=== PATIENT | female | born 1930 | race Caucasian/White ===

== ENCOUNTER 2017-09-02 23:40 | Inpatient (IN) | payer OTHER ==
[~2017-09-02] VITALS: Ht 160 cm; Wt 68.8 kg
--- NOTE | ~2017-09-02 | HC ---
[facility] [place] [address] CONSULTATION Name: JESUS MANUEL HITCHCOCK Room #: 355-P ADM IN M.R.#: [id number] Admission: 09/03/17 Attend Phys: Sherrie Merchant Discharge: Date of : 31 Report #: [id number] THIS REPORT FOR: //name// CC: Rosa Merchant DATE OF SERVICE: 09/03/2017 REASON FOR CONSULTATION: Elevated troponin. HISTORY OF PRESENT ILLNESS: The patient is an 86-year-old female with a history of coronary artery disease and ischemic cardiomyopathy, most recent echo was in 03/2015 showing EF of 40-45% with evidence of anterior and inferior AK. She also has a history of diabetes; hypertension; hyperlipidemia; ischemic bowel, status post colostomy; peripheral vascular disease, status post prior stents, as well as carotid endarterectomy and COPD, on chronic oxygen. She has seen Dr. Correia here in the past. She presented with worsening shortness of breath. In the ER, she received Lasix and nebs and steroids. Her shortness of breath has improved. She was noted to have a troponin of 0.1. She denies any chest pain or chest tightness. She has been noticing increased exertional dyspnea. She denies PND or orthopnea. She denies presyncope or syncope. PAST MEDICAL HISTORY: As above. SOCIAL HISTORY: Quit smoking. FAMILY HISTORY: Noncontributory. ALLERGIES: None. MEDICATIONS: Include glimepiride, nebs, OxyContin, metformin, atorvastatin, prednisone, oxycodone, Imdur, Plavix, aspirin, carvedilol 6.25, not on an WESLEY due to chronic renal insufficiency, Protonix, gabapentin, aspirin. PHYSICAL EXAMINATION: VITAL SIGNS: Temperature is 35.9, pulse 62, respirations 12, blood pressure 118/59, sats 100% on oxygen. GENERAL: She is in no acute distress. HEENT: Oropharynx clear. NECK: Supple, no thyromegaly. HEART: Regular rate and rhythm. She does not have elevated jugular venous pressures. LUNGS: Demonstrate some mild coarse crackles, mild expiratory wheezes. ABDOMEN: Soft, nontender, nondistended with no hepatosplenomegaly. EXTREMITIES: No clubbing, cyanosis, or edema. Pulses are 1+ on the dorsalis pedis area. [address] [address] CONSULTATION Name: JESUS MANUEL HITCHCOCK Room #: 355-P ADM IN M.R.#: [id number] Admission: 09/03/17 Attend Phys: Sherrie Merchant Discharge: Date of : 31 Report #: [id number] NEUROLOGIC: Cranial nerves 2-12 are intact. LABORATORY DATA: Her 12-lead EKG shows sinus rhythm with no ischemic changes. Her telemetry shows no significant arrhythmias. LABORATORY DATA: White count 5.5, hemoglobin 12.3, platelets 180. Blood gas 7.2, pCO2 66, pO2 on admission. Coags: D-dimer is elevated at 1.8. V/Q scan was low probability. Sodium is 139, potassium 3.5, BUN 45, creatinine 2.0, glucose 166. Troponin is 0.11. No chest x-ray was performed. ASSESSMENT: 1. Elevated troponin. 2. Ischemic cardiomyopathy. 3. Coronary artery disease. 4. Acute respiratory failure with hypercapnia. 5. Chronic obstructive pulmonary disease. 6. Peripheral vascular disease. PLAN: In summary, patient has history of ischemic cardiomyopathy, EF of 40-45%. She does not have any anginal symptoms and no ischemia on her EKG. She has slightly elevated troponin, which could be due to some CHF versus COPD exacerbation. She had a proBNP that is elevated at 3000. I have recommended that she undergo an echocardiogram. We will continue with beta jose alejandro therapy and aspirin therapy and continue with diuretics. No WESLEY or ARB due to chronic renal insufficiency. I do not think stress testing is warranted at this time. We will continue to follow. <ELECTRONICALLY SIGNED> By: Yemi Villalobos MD 09/04/17 1327 [id number] Yemi Villalobos MD /nt
--- NOTE | ~2017-09-02 | 2DMMODE ---
[facility] [address] [place] [address] 2 D/M-MODE ECHOCARDIOGRAM Name: CORETTAJESUS MANUEL Room #: 355-P ADM IN M.R.#: [id number] Admission: 09/03/17 Attend Phys: Sherrie Cabrera Discharge: Date of : 31 Date of Service: 09/04/17 1530 Report #: [id number] THIS REPORT FOR: //name// APPROVED REPORT Study performed: 09/04/2017 11:12:44 EXAM: Comprehensive 2D, Doppler, and color-flow Echocardiogram Patient Location: Bedside Room #: 355 Status: routine BSA: 1.72 HR: 60 bpm BP: 140/65 mmHg Other Information Study Quality: Adequate Indications Congestive Heart Failure COPD CAD Cardiomyopathy Hypertension/HDD SOB 2D Dimensions RVDd: 31.39 mm LVEF(%): 42.47 (>50%) IVSd: 11.81 (7-11mm) LVOT Diam: 18.16 (18-24mm) LVDd: 47.55 mm PWd: 13.23 (7-11mm) Ascending Ao: 32.01 (22-36mm) LVDs: 37.63 (25-40mm) Aortic Root: 29.75 mm IVC: 22.00 mm Rivera's LVEF: 42.47 % Volumes Left Atrial Volume (Systole) Single Plane 4CH: 24.80 mL Single Plane 2CH: 58.00 mL LA ESV Index: 26.00 mL/m2 Aortic Valve AoV Peak Real.: 1.82 m/s AO Peak Gr.: 14.30 mmHg LVOT Max P.60 mmHg LVOT Max V: 0.81 m/s [facility] [email or web address] [address] 2 D/M-MODE ECHOCARDIOGRAM Name: JESUS MANUEL HITCHCOCK Room #: 355-P [facility].#: [id number] Admission: 09/03/17 Attend Phys: Sherrie Cabrera Discharge: Date of : 31 Date of Service: 09/04/17 1530 Report #: [id number] Vmax: 1.15 cm2 Mitral Valve E/A Ratio: 0.7 MV Decel. Time: 260.99 ms MV E Max Real.: 0.81 m/s MV A Real.: 1.22 m/s MV PHT: 75.69 ms IVRT: 117.65 ms Pulmonary Valve PV Peak Real.: 1.07 m/s PV Peak Gr.: 4.57 mmHg Pulmonary Vein P Vein S: 0.70 m/s P Vein A: 0.27 m/s P Vein D: 0.38 m/s P Vein A Dur.: 138.4 msec P Vein S/D Ratio: 1.84 Tricuspid Valve TR Peak Real.: 3.52 m/s RAP Estimate: 10.00 mmHg TR Peak Gr.: 49.45 mmHg PA Pressure: 60.00 mmHg Left Ventricle The left ventricle is normal size. apical hypokinesis Mild concentric left ventricular hypertrophy. Left ventricular systolic function is moderate to severely decreased. LVEF is 30-35%. Transmitral Doppler flow pattern suggests impaired LV relaxation. Right Ventricle The right ventricle is normal size. Right ventricle is mildly hypokinetic. Atria The left atrium size is normal. The right atrium size is normal. Aortic Valve The aortic valve is normal in structure. Trace to mild aortic regurgitation. There is no aortic valvular stenosis. Mitral Valve Mitral valve leaflets are mildly thickened. Trace to mild mitral regurgitation. No evidence of mitral valve stenosis. Tricuspid Valve [facility] [address] [place] [address] 2 D/M-MODE ECHOCARDIOGRAM Name: JESUS MANUEL HITCHCOCK Room #: 355-P [facility] IN M.R.#: [id number] Admission: 09/03/17 Attend Phys: Sherrie Cabrera Discharge: Date of : 31 Date of Service: 09/04/17 1530 Report #: [id number] The tricuspid valve is normal in structure. Mild tricuspid regurgitation. PAP is estimated at 60 mmHg. Pulmonic Valve The pulmonary valve is normal in structure. Trace pulmonic regurgitation. Great Vessels The aortic root is normal in size. IVC is dilated and collapses >50% with inspiration. Pericardium There is no pericardial effusion. <Conclusion> The left ventricle is normal size. Left ventricular systolic function is moderate to severely decreased. LVEF is 30-35%. apical hypokinesis The aortic valve is normal in structure. Trace to mild aortic regurgitation. Mitral valve leaflets are mildly thickened. Trace to mild mitral regurgitation. The tricuspid valve is normal in structure. Mild tricuspid regurgitation. PAP is estimated at 60 mmHg. The pulmonary valve is normal in structure. Trace pulmonic regurgitation. There is no pericardial effusion. <ELECTRONICALLY SIGNED> By: Raymond Jeffery MD 09/04/17 1530 [id number] Raymond Jeffery MD /INF
--- NOTE | ~2017-09-02 | EKG ---
[place] [address] [facility] [place] [address] ELECTROCARDIOGRAM REPORT Name: JESUS MANUEL HITCHCOCK Room #: 355-P ADM IN M.R.#: [id number] Admission: 09/03/17 Attend Phys: Sherrie Merchant Discharge: Date of : 31 Report #: [id number] THIS REPORT FOR: //name// [facility] Test Date: 2017-09-04 Test Time: 08:07:23 Pat Name: JESUS MANUEL HITCHCOCK Department: Room: 355 Gender: F Film Maker: CHALO : 1930 Requested By: Chilango Correia Order Number: [id number] MD: Chilango Correia Measurements Intervals [place] Rate: 71 P: 8 [place]: 206 QRS: -9 QRSD: 105 T: 2 QT: 553 QTc: 602 Interpretive Statements Sinus rhythm Nonspecific ST and T wave abnormality Prolonged QT interval Compared to ECG 03/18/2015 20:12:15 No significant change was found Electronically Signed On 09-04-2017 17:09:50 CDT by Chilango Correia [email or web address] <ELECTRONICALLY SIGNED> By: Chilango Correia MD, [facility] 09/04/17 1709 0807 08 Chilango Correia MD, [facility] /EPI
--- NOTE | ~2017-09-02 | EKG ---
[address] [facility] [place] [place] [address] ELECTROCARDIOGRAM REPORT Name: JESUS MANUEL HITCHCOCK Room #: 355-P ADM IN M.R.#: [id number] Admission: 09/03/17 Attend Phys: Sherrie Merchant Discharge: Date of : 31 Report #: [id number] THIS REPORT FOR: //name// [facility] ED Test Date: 2017-09-02 Test Time: 23:47:48 Pat Name: JESUS MANUEL HITCHCOCK Department: Room: Gender: F Clerk Specialist: BENJAMÍN : 1930 Requested By: Avinash Lomeli Order Number: [id number] MD: Chilango Correia Measurements Intervals [place] Rate: 59 P: 0 [place]: 209 QRS: -14 QRSD: 105 T: 60 QT: 465 QTc: 461 Interpretive Statements Sinus rhythm Atrial premature complex Poor R wave progression Compared to ECG 03/18/2015 20:12:15 Atrial premature complex(es) now present Electronically Signed On 09-04-2017 16:57:25 CDT by Chilango Correia [email or web address] <ELECTRONICALLY SIGNED> By: Chilango Correia MD, [facility] [id number] [phone] Chilango Correia MD, [facility] /EPI
--- NOTE | ~2017-09-02 | EKG ---
[address] [place] [address] ELECTROCARDIOGRAM REPORT Name: JESUS MANUEL HITCHCOCK Room #: 355-P ADM IN M.R.#: [id number] Admission: 09/03/17 Attend Phys: Sherrie Merchant Discharge: Date of : 31 Report #: [id number] THIS REPORT FOR: //name// [facility] Test Date: 2017-09-04 Test Time: 02:58:07 Pat Name: JESUS MANUEL HITCHCOCK Department: Room: 355 P Gender: F Broke Handler: LYNDA : 1930 Requested By: Naida Cantrell Order Number: [id number] MD: Chilango Correia Measurements Intervals [place] Rate: 69 P: 25 [place]: 207 QRS: -2 QRSD: 110 T: 47 QT: 551 QTc: 591 Interpretive Statements Sinus rhythm Nonspecific T abnormalities, anterior leads Prolonged QT interval Compared to ECG 03/18/2015 20:12:15 T-wave abnormality now present Prolonged QT interval now present Electronically Signed On 09-04-2017 17:06:55 CDT by Chilango Correia [email or web address] <ELECTRONICALLY SIGNED> By: Chilango Correia MD, [facility] 09/04/17 1706 0258 0258 Chilango Correia MD, [facility] /EPI
--- NOTE | ~2017-09-02 | EKG ---
[address] [place] [address] ELECTROCARDIOGRAM REPORT Name: JESUS MANUEL HITCHCOCK Room #: 355-P ADM IN M.R.#: [id number] Admission: 09/03/17 Attend Phys: Sherrie Merchant Discharge: Date of : 31 Report #: [id number] THIS REPORT FOR: //name// [facility] Test Date: 2017-09-03 Test Time: 06:45:26 Pat Name: JESUS MANUEL HITCHCOCK Department: Room: 355 Gender: F Information Systems Consultant: LANG : 1930 Requested By: Sherrie Merchant Order Number: [id number] MD: Chilango Correia Measurements Intervals [place] Rate: 85 P: 33 [place]: 181 QRS: -17 QRSD: 106 T: 72 QT: 392 QTc: 467 Interpretive Statements Sinus rhythm Poor R wave progression Compared to ECG 03/18/2015 20:12:15 No significant change was found Electronically Signed On 09-04-2017 16:58:05 CDT by Chilango Correia [email or web address] <ELECTRONICALLY SIGNED> By: Chilango Correia MD, [facility] 09/04/17 1658 4 Chilango Correia MD, [facility] /EPI
[~2017-09-02 23:40] MED LIST: ADVAIR; AMARYL2 MG PO; ASPIRIN81 M2 PO; BENADRYL25 MG PO; CALCIUM CARBONATE; CARVEDILOL12.5 MG PO; COMBIVENT; CRESTOR40 MG PO; DEMADEX20 MG PO; FUROSEMIDE 20 M20 MG PO; GABAPENTIN 100100 MG PO; GAS RELIEF125 M1 PO; GLUCOPHAGE XR500 MG PO; HYDROCODONE-AP1 EACH PO; ICY HOT; IMDUR 60 MG TAB60 M1 PO; INSPRA25 MG PO; MAGNESIUM CHLORIDE; METFORMIN HCL500 MG PO; NORCO 10-325 T1 EAC1 PO; OXYCONTIN15 MG PO; PAXIL10 MG; PERFORM PAIN RE89 ML; PLAVIX 75 MG TA75 M1 PO; PROAIR HFA8.5 GM; PROTONIX40 M1 PO; REQUIP1 MG PO; SALONPAS PAIN118 ML; SENNA PLUS TAB1 EACH PO; TRICOR145 MG PO; VENTOLIN HFA 1818 GM; VITAMIN D3; VITAMIN E
[2017-09-02 23:41] VITALS: BP 102/33
[2017-09-02 23:54] LABS: ABSOLUTE NEUTROPHILS 3.7 thou/uL (1.4-8.2); BASOPHILS 0.4 % (0.0-2.0); EOSINOPHILS 1.8 % (0.0-3.0); HEMATOCRIT 35.3 % (37.0-47.0); HEMOGLOBIN 12.3 gm/dL (12.0-15.0); LYMPHOCYTES 18.5 % (24.0-44.0); MCH 31.5 pg (26.0-34.0); MCV 90.1 fL (80.0-100.0); MONOCYTES 11.8 % (1.0-8.0); PLATELET COUNT 180 thou/uL (150-400); POLYS 67.5 % (36.0-66.0); RBC 3.91 mil/uL (4.20-5.00); RDW 14.6 % (10.5-14.5); WBC 5.5 thou/uL (4.0-11.0)
[2017-09-03 00:06] LABS: POTASSIUM 3.5 mmol/L (3.5-5.1)
[2017-09-03 00:14] LABS: ALBUMIN 3.2 g/dL (3.4-5.0); MAGNESIUM 1.9 mg/dL (1.8-2.4); TOTAL BILIRUBIN 0.4 mg/dL (<0.1-1.0); TOTAL PROTEIN 6.6 g/dL (6.4-8.2); TROPONIN-I 0.11 ng/mL (<0.06)
[2017-09-03] MEDS ORDERED: METFORMIN HCL500 MG PO (02:43)
[2017-09-03] MEDS ORDERED: NITROGLYCERIN0.4 MG SUBLING (02:44)
[2017-09-03 03:55] VITALS: BP 121/47
[2017-09-03 04:45] VITALS: BP 92/70
[2017-09-03] MEDS ORDERED: OXYCONTIN15 MG PO (05:23)
[2017-09-03] MEDS ORDERED: TRULICITY0.75 MG/0. SUBQ (06:19)
[2017-09-03 07:14] LABS: BE(vivo) 2.1 mmol/L (-2 to +3); HCO3 30.7 mmol/L (22.0-26.0); PCO2 66.3 mmHg (35.0-45.0); PO2 89.2 mmHg (80.0-100.0); pH 7.283 (7.360-7.450); sO2 95.5 % (92.0-98.0)
[2017-09-03 07:40] VITALS: BP 99/44
[2017-09-03 07:53] LABS: CHOLESTEROL 144 mg/dL (<200); HDL CHOLESTEROL 45 mg/dL (>40); LDL CHOLESTEROL 77 mg/dL (<100); TC:HDL 3.2 Ratio (Not establshd); TRIGLYCERIDE 111 mg/dL (<150); VLDL 22 mg/dL (<40)
[2017-09-03 11:49] VITALS: BP 118/59
[2017-09-03 15:37] LABS: BE(vivo) 5.1 mmol/L (-2 to +3); HCO3 29.8 mmol/L (22.0-26.0); PCO2 44.2 mmHg (35.0-45.0); PO2 60.4 mmHg (80.0-100.0); pH 7.447 (7.360-7.450)
[2017-09-03 16:15] VITALS: BP 132/55
[2017-09-03 20:23] VITALS: BP 120/43
[2017-09-04] VITALS (12 sets, daily range): BP systolic 104–146; BP diastolic 50–76
[2017-09-04 03:12] LABS: HEMATOCRIT 35.1 % (37.0-47.0); HEMOGLOBIN 12.2 gm/dL (12.0-15.0); MCH 31.5 pg (26.0-34.0); MCHC 34.8 g/dL (28.0-37.0); MCV 90.5 fL (80.0-100.0); RBC 3.88 mil/uL (4.20-5.00); RDW 14.3 % (10.5-14.5); WBC 9.2 thou/uL (4.0-11.0)
[2017-09-04 03:24] LABS: CALCIUM 8.7 mg/dL (8.5-10.1); CREATININE 1.8 mg/dL (0.6-1.0); MAGNESIUM 2.1 mg/dL (1.8-2.4); POTASSIUM 3.7 mmol/L (3.5-5.1)
[2017-09-04 06:44] LABS: BE(vivo) 7.1 mmol/L (-2 to +3); HCO3 29.9 mmol/L (22.0-26.0); PCO2 36.2 mmHg (35.0-45.0); PO2 55.4 mmHg (80.0-100.0); pH 7.535 (7.360-7.450); sO2 92.1 % (92.0-98.0)
[2017-09-05 03:12] VITALS: BP 142/67
[2017-09-05 05:49] LABS: HEMATOCRIT 33.1 % (37.0-47.0); HEMOGLOBIN 11.5 gm/dL (12.0-15.0); MCH 31.4 pg (26.0-34.0); MCHC 34.8 g/dL (28.0-37.0); MCV 90.2 fL (80.0-100.0); RBC 3.67 mil/uL (4.20-5.00); RDW 14.6 % (10.5-14.5); WBC 8.7 thou/uL (4.0-11.0)
[2017-09-05 06:03] LABS: CALCIUM 8.4 mg/dL (8.5-10.1); CREATININE 1.7 mg/dL (0.6-1.0); MAGNESIUM 2.3 mg/dL (1.8-2.4); POTASSIUM 3.8 mmol/L (3.5-5.1)
[2017-09-05 07:19] VITALS: BP 137/76
[2017-09-05 11:09] VITALS: BP 126/63
[2017-09-05 15:10] VITALS: BP 118/70
[2017-09-05 19:23] VITALS: BP 121/50
[2017-09-06 03:56] VITALS: BP 140/75
[2017-09-06 04:50] LABS: HEMATOCRIT 33.1 % (37.0-47.0); HEMOGLOBIN 11.7 gm/dL (12.0-15.0); MCH 31.5 pg (26.0-34.0); MCHC 35.3 g/dL (28.0-37.0); MCV 89.3 fL (80.0-100.0); RBC 3.71 mil/uL (4.20-5.00); RDW 14.7 % (10.5-14.5); WBC 8.4 thou/uL (4.0-11.0)
[2017-09-06 04:59] LABS: CALCIUM 8.5 mg/dL (8.5-10.1); CREATININE 1.8 mg/dL (0.6-1.0); MAGNESIUM 2.4 mg/dL (1.8-2.4); POTASSIUM 3.9 mmol/L (3.5-5.1)
[2017-09-06] MEDS ORDERED: MIRALAX17 GM PO (05:53)
[2017-09-06 08:26] VITALS: BP 131/56
[2017-09-06 08:27] VITALS: BP 131/56
[2017-09-06] MEDS ORDERED: LEVAQUIN 500 M500 M1 PO (09:49)
[2017-09-06] MEDS ORDERED: RANEXA500 MG PO (09:49)
[2017-09-06 10:03] VITALS: BP 131/56
== END 2017-09-06 12:08 | disposition home or self-care (01) | DRG 280 ==
LOC: ER 23:40 → 3W 09-03 01:08 → EROBS 09-03 01:08 → 3W 09-03 04:17 → ENTRNSPT 09-06 11:55 → 3W 09-06 12:08
PROVIDERS: Emergency Medicine; Internal Medicine; Internal Medicine Pulmonary Disease; Nurse Practitioner Acute Care
PROC: 5A09357 Assistance with Respiratory Ventilation, Less than 24 Consecutive Hours, Continuous Positive Airway Pressure (ICD-10-PCS; principal; 2017-09-03)
PROC: 5A09357 Assistance with Respiratory Ventilation, Less than 24 Consecutive Hours, Continuous Positive Airway Pressure (ICD-10-PCS; 2017-09-04)
PROC: 5A09357 Assistance with Respiratory Ventilation, Less than 24 Consecutive Hours, Continuous Positive Airway Pressure (ICD-10-PCS; 2017-09-05)
DX: I21.4 Non-ST elevation (NSTEMI) myocardial infarction (principal); J96.21 Acute and chronic respiratory failure with hypoxia; J96.22 Acute and chronic respiratory failure with hypercapnia; I50.23 Acute on chronic systolic (congestive) heart failure; J44.1 Chronic obstructive pulmonary disease with (acute) exacerbation; I13.0 Hypertensive heart and chronic kidney disease with heart failure and stage 1 through stage 4 chronic kidney disease, or unspecified chronic kidney disease; N17.9 Acute kidney failure, unspecified; I25.10 Atherosclerotic heart disease of native coronary artery without angina pectoris; I25.5 Ischemic cardiomyopathy; E11.51 Type 2 diabetes mellitus with diabetic peripheral angiopathy without gangrene; G47.33 Obstructive sleep apnea (adult) (pediatric); J84.10 Pulmonary fibrosis, unspecified; F41.1 Generalized anxiety disorder; I27.20 Pulmonary hypertension, unspecified; N18.3 Chronic kidney disease, stage 3 (moderate); E11.22 Type 2 diabetes mellitus with diabetic chronic kidney disease; G89.29 Other chronic pain; M54.9 Dorsalgia, unspecified; Z66 Do not resuscitate; E78.5 Hyperlipidemia, unspecified; K21.9 Gastro-esophageal reflux disease without esophagitis; Z93.3 Colostomy status; Z90.49 Acquired absence of other specified parts of digestive tract; Z87.891 Personal history of nicotine dependence; Z90.710 Acquired absence of both cervix and uterus; Z95.820 Peripheral vascular angioplasty status with implants and grafts; Z99.81 Dependence on supplemental oxygen; Z79.899 Other long term (current) drug therapy
CPT/HCPCS: 10879

== ENCOUNTER 2017-09-07 02:19 | Inpatient (IN) | payer OTHER ==
[~2017-09-07] VITALS: Ht 160 cm; Wt 68.9 kg
--- NOTE | ~2017-09-07 | H ---
[facility] [address] [place] [address] HISTORY AND PHYSICAL Name: JESUS MANUEL HITCHCOCK Room #: 215-P ADM IN M.R.#: [id number] Admission: 09/07/17 Attend Phys: Sherrie Merchant Discharge: Date of : 31 Report #: [id number] THIS REPORT FOR: //name// CC: FAM physician/PCP Sherrie Merchant DATE OF SERVICE: 09/07/2017 ATTENDING PHYSICIAN: Dr. Merchant. PRIMARY CARE PHYSICIAN: Dr. Rosa Briseno. CHIEF COMPLAINT: Respiratory distress. HISTORY OF PRESENT ILLNESS: The patient is an 86-year-old female, who was just released from [facility] yesterday after hospitalization for respiratory failure. During the hospitalization, she was treated for COPD exacerbation as well as CHF exacerbation and possible lung mass. She had an echocardiogram, which showed an EF of 30%-35% with some moderate pulmonary hypertension. She was treated with IV steroids and breathing treatment and some mild diuresis, but she does have chronic kidney disease, so her kidney function was followed closely. She had a negative V/Q scan. She was seen by Pulmonary as well as Cardiology. She had mildly elevated troponin level and this was felt to be due to her CHF and COPD. She was continued on Imdur, aspirin and Plavix, and Ranexa was added. Apparently when she was discharged yesterday, she was feeling much better and reports that she has been up walking in the halls on her normal 3 liters of oxygen, so she felt like she was okay to go home. It does not look like she was discharged on any steroid taper, but she did have new prescriptions for Levaquin and Ranexa. She states she left the hospital and went out to eat with her son, later on they went to the pharmacy. She states that she did not get her dose of Ranexa because the pharmacy was unable to fill it that night and told her she would have to wait until morning. She says she did a lot of walking, later on she was increasingly short of breath and was having some chest pressure, so she ended up going by ambulance to [facility]. Because she has recently been hospitalized here at [facility], she was transferred here for continued care. She was placed on BiPAP at [facility] and given Ativan, nitro sublingual and Lasix prior to transfer. She is currently resting comfortably on BiPAP and states she feels like she is breathing easier. She has not been having a cough. She states she tried her nebulizer at home without much relief. She denies drinking any excess fluids yesterday after discharge. PAST MEDICAL HISTORY: Systolic heart failure with an EF of 30%-35%, moderate pulmonary hypertension, hyperlipidemia, hypertension, diabetes, GERD, chronic respiratory failure due to COPD which is oxygen dependent, PVD, chronic kidney disease stage 3. 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 ALLERGIES: No known drug allergies. HOME MEDICATIONS: Plavix 75 mg daily, albuterol inhaler p.r.n., Ranexa 500 mg b.i.d., fenofibrate 145 mg daily, Crestor 40 mg at bedtime, Imdur 60 mg daily, nitro sublingual p.r.n. Coreg 12.5 mg b.i.d., Inspra 25 mg daily, aspirin 81 mg daily, OxyContin 30 mg b.i.d. p.r.n., Neurontin 400 mg q.i.d., Requip 3 mg at bedtime, torsemide 40 mg b.i.d., MiraLax 17 g b.i.d., Protonix 40 mg daily, Trulicity 0.75 mg weekly, calcium carbonate with vitamin D daily, vitamin D3 2000 units daily and magnesium 64 mg daily. SOCIAL HISTORY: The patient denies any current tobacco use. She is an ex-smoker, having smoked up to 2-3 packs per day at one point. She smoked 25 years. She quit 10 years ago. She drinks an occasional cocktail, a glass of wine, but denies any daily use. Denies any drug use. FAMILY HISTORY: The patient denies any significant family history. REVIEW OF SYSTEMS: Twelve-point review of systems was reviewed with the patient, otherwise negative unless stated in the HPI. PHYSICAL EXAMINATION: GENERAL: The patient is an alert female, currently on BiPAP. HEENT: PERRLA. Sclerae is nonicteric. Oral mucosa is pink and moist. NECK: Supple. There is no JVD noted. CARDIAC: Normal S1, S2. No murmurs, rubs or gallops. RESPIRATORY: Breath sounds are clear bilateral upper lobes. She does have some coarse breath sounds in the right lower lobe. Breathing is nonlabored with BiPAP. ABDOMEN: Soft, nontender, nondistended with positive bowel sounds. VASCULAR: Her feet are somewhat cool, but pedal pulses are 1+. There is no cyanosis. NEUROLOGIC: The patient is on BiPAP, so speech is muffled, but she is answering questions appropriately and able to follow all commands and moves all extremities equally. There is no focal weakness noted. SKIN: Intact. No rashes or lesions. She has a few scattered bruises. LABORATORY DATA AND DIAGNOSTICS: Blood work done at [facility] showed a WBC of 18.3, hemoglobin 14.4, platelets 301. Sodium 139, potassium 4.7, BUN 59, creatinine is 2.1, glucose 188 and troponin was 0.19. BNP 7846. EKG showing normal sinus rhythm and chest x-ray was reported to have bilateral pulmonary edema. [facility] [address] [place] [address] HISTORY AND PHYSICAL Name: JESUS MANUEL HITCHCOCK Room #: 215-P ADM IN M.R.#: [id number] Admission: 09/07/17 Attend Phys: Sherrie Merchant Discharge: Date of : 31 Report #: [id number] ASSESSMENT AND PLAN: 1. Fmsta-aw-homgobd systolic heart failure. Chest x-ray showed pulmonary edema and BNP is elevated from previous. She did receive a dose of IV Lasix. We will continue with a few more doses of IV Lasix. Her recent echo showed an EF of 30%-35%. We will place on a fluid restriction. We will repeat a chest x-ray later today, after diuresing, to further evaluate pulmonary edema. 2. Clltw-mr-tawafth hypoxic respiratory failure. The patient is currently requiring BiPAP because of initial distress. We will check ABG, reconsult Pulmonary. It does not look like she was discharged on any oral steroids. We will resume IV steroids at this time as well as breathing treatments, wean BiPAP as able. She normally wears 3 liters of oxygen continuously. 3. Mildly elevated troponin. Troponin was 0.19, but her troponins had been running somewhat elevated during her hospitalization, the last one measuring 0.56 on 09/04/2017. She is describing some chest pressure initially, but that has since improved. We will repeat a troponin later on this morning. Reconsult Cardiology for further recommendations. 4. Chronic kidney disease stage 3. It does look like her creatinine is mildly elevated from when she left here yesterday. We do need to diurese with Lasix, so we will be monitoring renal function closely. 5. Diabetes type 2. Blood sugars are mildly elevated, likely due to recent steroids. We will place on sliding scale insulin and follow Accu-Cheks. She normally takes Trulicity, but we do not currently carry that. 6. Code status. She wishes to be a nv-hte-ruwnulvrpqw. 7. Peripheral vascular disease with lower extremity stents. Continue with aspirin and Plavix. 8. Deep venous thrombosis prophylaxis. Place sequential compression devices. We will continue to follow the patient closely throughout the hospitalization and make changes based on clinical status. By: 0700 0754 Naida Cantrell, TRISTAN /nt
[~2017-09-07 02:19] MED LIST changes: +LEVAQUIN 500 M500 M1 PO; +MIRALAX17 GM PO; +NITROGLYCERIN0.4 MG SUBLING; +RANEXA500 MG PO; +TRULICITY0.75 MG/0. SUBQ
[2017-09-07 05:57] LABS: BE(vivo) 5.4 mmol/L (-2 to +3); HCO3 30.9 mmol/L (22.0-26.0); PCO2 48.6 mmHg (35.0-45.0); PO2 78.3 mmHg (80.0-100.0); pH 7.421 (7.360-7.450); sO2 95.7 % (92.0-98.0)
[2017-09-07 07:40] VITALS: BP 126/61
[2017-09-07 11:40] VITALS: BP 107/53
[2017-09-07 15:20] VITALS: BP 97/50
[2017-09-07 19:25] VITALS: BP 110/49
[2017-09-08 03:47] VITALS: BP 138/65
[2017-09-08 05:06] LABS: CALCIUM 7.8 mg/dL (8.5-10.1); CREATININE 1.9 mg/dL (0.6-1.0); MAGNESIUM 2.4 mg/dL (1.8-2.4); POTASSIUM 4.3 mmol/L (3.5-5.1)
[2017-09-08 05:45] LABS: HEMATOCRIT 35.8 % (37.0-47.0); HEMOGLOBIN 12.1 gm/dL (12.0-15.0); MCH 31.3 pg (26.0-34.0); MCHC 33.9 g/dL (28.0-37.0); MCV 92.4 fL (80.0-100.0); RBC 3.87 mil/uL (4.20-5.00); RDW 14.6 % (10.5-14.5); WBC 8.8 thou/uL (4.0-11.0)
[2017-09-08 07:45] VITALS: BP 149/60
[2017-09-08] MEDS ORDERED: PREDNISONE 10 M10 MG PO (08:41)
[2017-09-08 11:20] VITALS: BP 126/60
[2017-09-08 12:20] VITALS: BP 126/60
== END 2017-09-08 16:30 | disposition home or self-care (01) | DRG 280 ==
LOC: 2N 02:19 → ENTRNSPT 09-08 12:25 → EDTRNSPTSTS 09-08 12:28 → 2N 09-08 16:30
PROVIDERS: Nurse Practitioner Acute Care
PROC: 5A09357 Assistance with Respiratory Ventilation, Less than 24 Consecutive Hours, Continuous Positive Airway Pressure (ICD-10-PCS; principal; 2017-09-07)
DX: I13.0 Hypertensive heart and chronic kidney disease with heart failure and stage 1 through stage 4 chronic kidney disease, or unspecified chronic kidney disease (principal); I50.23 Acute on chronic systolic (congestive) heart failure; I21.4 Non-ST elevation (NSTEMI) myocardial infarction; J96.21 Acute and chronic respiratory failure with hypoxia; J44.1 Chronic obstructive pulmonary disease with (acute) exacerbation; Z66 Do not resuscitate; I27.20 Pulmonary hypertension, unspecified; E78.5 Hyperlipidemia, unspecified; E11.22 Type 2 diabetes mellitus with diabetic chronic kidney disease; E11.51 Type 2 diabetes mellitus with diabetic peripheral angiopathy without gangrene; K21.9 Gastro-esophageal reflux disease without esophagitis; J84.10 Pulmonary fibrosis, unspecified; I42.9 Cardiomyopathy, unspecified; I25.10 Atherosclerotic heart disease of native coronary artery without angina pectoris; G89.29 Other chronic pain; M54.9 Dorsalgia, unspecified; N18.3 Chronic kidney disease, stage 3 (moderate); Z87.891 Personal history of nicotine dependence; Z95.820 Peripheral vascular angioplasty status with implants and grafts; Z99.81 Dependence on supplemental oxygen; Z93.3 Colostomy status; Z90.49 Acquired absence of other specified parts of digestive tract; Z90.710 Acquired absence of both cervix and uterus; Z79.02 Long term (current) use of antithrombotics/antiplatelets; Z79.899 Other long term (current) drug therapy; Z51.5 Encounter for palliative care
CPT/HCPCS: 10081